=== PATIENT | male | born 1955 | race African-American/Black ===

== ENCOUNTER 2017-09-07 14:23 | Inpatient (IN) | payer MEDICAID ==
[~2017-09-07] VITALS: Ht 177.8 cm; Wt 86.2 kg
[2017-09-07 14:43] VITALS: BP 109/64
[2017-09-07 15:46] LABS: ANION GAP 10 mmol/L (5-15); BLOOD UREA NITROGEN 29 mg/dL (7-18); CALCIUM 8.1 MG/DL (8.5-10.1); CARBON DIOXIDE 19 MMOL/L (21-32); CHLORIDE 102 MMOL/L (98-107); CREATININE 2.3 MG/DL (0.55-1.30); POTASSIUM 4.6 MMOL/L (3.5-5.1); SODIUM 131 MMOL/L (136-145)
[2017-09-07 15:47] LABS: BASOPHILS % (AUTO) 0.6 % (0.0-2.0); HEMATOCRIT 38.9 % (42.0-52.0); HEMOGLOBIN 13.4 G/DL (14.2-18.0); LYMPHOCYTES % (AUTO) 27.7 % (20.0-45.0); MEAN CORPUSCULAR VOLUME 90 FL (80-99); MONOCYTES % (AUTO) 10.2 % (1.0-10.0); NEUTROPHILS % (AUTO) 60.5 % (45.0-75.0); PLATELET COUNT 217 K/UL (150-450); RED BLOOD COUNT 4.31 M/UL (4.70-6.10); RED CELL DISTRIBUTION WIDTH 11.3 % (11.6-14.8); WHITE BLOOD COUNT 9.4 K/UL (4.8-10.8)
[2017-09-07 15:59] LABS: ALANINE AMINOTRANSFERASE 27 U/L (12-78); ALBUMIN 2.8 G/DL (3.4-5.0); ALBUMIN/GLOBULIN RATIO 0.7 (1.0-2.7); ALKALINE PHOSPHATASE 67 U/L (46-116); ASPARTATE AMINO TRANSFERASE 46 U/L (15-37); BILIRUBIN,TOTAL 0.6 MG/DL (0.2-1.0); CKMB 6.4 NG/ML (0.0-3.6); CREATINE KINASE 791 U/L (26-308)
--- NOTE | 2017-09-07 16:21 | Emergency Room Report ---
History of Present Illness General Chief Complaint: Abnormal Labs Source: Patient Present Illness HPI 61-year-old male presents ED for evaluation. Patient brought in by EMS from clinic. Patient was hypotensive at the clinic. Was given IV hydration. Blood pressure improved upon triage. Patient states he had a normal routine checkup today with his doctor but states that when he was at the office he felt dizzy. States he felt okay this morning. States that for last few days he's been having diarrhea. Denies any vomiting. Denies chest pain or shortness of breath. Denies any abdominal pain. Denies nausea or vomiting. No other aggravating relieving factors. Denies any other associated symptoms Allergies: Coded Allergies: No Known Allergies (Unverified , 09/07/17) Patient History Past Medical History: DM, HTN Past Surgical History: none Pertinent Family History: none Social History: Denies: smoking, alcohol use, drug use Immunizations: UTD Reviewed Nursing Documentation: PMH: Agreed; PSxH: Agreed Nursing Documentation-PMH Past Medical History: No History, Except For Hx Hypertension: Yes Hx Diabetes: Yes Review of Systems All Other Systems: negative except mentioned in HPI Physical Exam Vital Signs Date Time Temp Pulse Resp B/P (MAP) Pulse Ox O2 Delivery O2 Flow Rate FiO2 09/07/17 14:17 97.6 81 20 109/64 100 Room Air 97.5 Sp02 EP Interpretation: reviewed, normal General Appearance: no apparent distress, alert, GCS 15, non-toxic Head: normocephalic, atraumatic Eyes: bilateral eye normal inspection, bilateral eye PERRL ENT: hearing grossly normal, normal pharynx, no angioedema, normal voice Neck: full range of motion, supple/symm/no masses Respiratory: chest non-tender, lungs clear, normal breath sounds, speaking full sentences Cardiovascular #1: regular rate, rhythm, no edema Cardiovascular #2: 2+ carotid (R), 2+ carotid (L), 2+ radial (R), 2+ radial (L) , 2+ dorsalis pedis (R), 2+ dorsalis pedis (L) Gastrointestinal: normal bowel sounds, non tender, soft, non-distended, no guarding, no rebound Rectal: deferred Genitourinary: normal inspection, no CVA tenderness Musculoskeletal: back normal, gait/station normal, normal range of motion, non- tender Neurologic: alert, oriented x3, responsive, motor strength/tone normal, sensory intact, speech normal Psychiatric: judgement/insight normal, memory normal, mood/affect normal, no suicidal/homicidal ideation Reflexes: 3+ bicep (R), 3+ bicep (L), 3+ tricep (R), 3+ tricep (L), 3+ knee (R) , 3+ knee (L) Skin: normal color, no rash, warm/dry, well hydrated Lymphatic: no adenopathy Medical Decision Making Diagnostic Impression: Primary Impression: Diarrhea Qualified Codes: R19.7 - Diarrhea, unspecified Additional Impressions: Dehydration ARF (acute renal failure) Qualified Codes: N17.9 - Acute kidney failure, unspecified ER Course Hospital Course 61-year-old male presents ED complaining of dizziness, blood pressure low. Diarrhea 2 days differential - acs/mi, dehydration, anemia Clinical course Patient placed on stretcher. After initial history, physical exam reveals elderly male in no acute distress. I ordered labs, IV fluids, EKG Labs - no leukocytosis noted, Hb/Hct stable. BUN/Cr elevated, trop negative EKG - NSR, no acute ischemic changes interpreted by me Case discussed with Dr. Rodriguez and he agreed to accept the patient to his service for further care and support I feel this is a highly complex case requiring extensive working including EKG/ Rhythm strip, Xray/CT/US, Blood/urine lab work, repeat exams while in ED, and administration of strong opiates/narcotics for pain control, admission to hospital or close patient follow up. Diagnosis - diarrhea, dehydation, ARF Patient admitted to hospital in serious condition Labs Test 09/07/17 15:01 White Blood Count 9.4 K/UL (4.8-10.8) Red Blood Count 4.31 M/UL (4.70-6.10) Hemoglobin 13.4 G/DL (14.2-18.0) Hematocrit 38.9 % (42.0-52.0) Mean Corpuscular Volume 90 FL (80-99) Mean Corpuscular Hemoglobin 31.0 PG (27.0-31.0) Mean Corpuscular Hemoglobin Concent 34.4 G/DL (32.0-36.0) Red Cell Distribution Width 11.3 % (11.6-14.8) Platelet Count 217 K/UL (150-450) Mean Platelet Volume 9.0 FL (6.5-10.1) Neutrophils (%) (Auto) 60.5 % (45.0-75.0) Lymphocytes (%) (Auto) 27.7 % (20.0-45.0) Monocytes (%) (Auto) 10.2 % (1.0-10.0) Eosinophils (%) (Auto) 1.0 % (0.0-3.0) Basophils (%) (Auto) 0.6 % (0.0-2.0) Sodium Level 131 MMOL/L (136-145) Potassium Level 4.6 MMOL/L (3.5-5.1) Chloride Level 102 MMOL/L (98-107) Carbon Dioxide Level 19 MMOL/L (21-32) Anion Gap 10 mmol/L (5-15) Blood Urea Nitrogen 29 mg/dL (7-18) Creatinine 2.3 MG/DL (0.55-1.30) Estimat Glomerular Filtration Rate 28.9 mL/min (>60) Glucose Level 198 MG/DL (74-106) Calcium Level 8.1 MG/DL (8.5-10.1) Total Bilirubin 0.6 MG/DL (0.2-1.0) Aspartate Amino Transf (AST/SGOT) 46 U/L (15-37) Alanine Aminotransferase (ALT/SGPT) 27 U/L (12-78) Alkaline Phosphatase 67 U/L (46-116) Total Creatine Kinase 791 U/L (26-308) Creatine Kinase MB 6.4 NG/ML (0.0-3.6) Creatine Kinase MB Relative Index 0.8 Troponin I 0.011 ng/mL (0.000-0.056) Pro-B-Type Natriuretic Peptide 183 pg/mL (0-125) Total Protein 6.9 G/DL (6.4-8.2) Albumin 2.8 G/DL (3.4-5.0) Globulin 4.1 g/dL Albumin/Globulin Ratio 0.7 (1.0-2.7) EKG Diagnostic Results Rate: normal Rhythm: NSR ST Segments: other - twave abnormality latera leads ASA given to the pt in ED: No Rhythm Strip Diag. Results EP Interpretation: yes Rhythm: NSR, no ectopy, other - PVCS Last Vital Signs Date Time Temp Pulse Resp B/P (MAP) Pulse Ox O2 Delivery O2 Flow Rate FiO2 09/07/17 14:43 97.5 72 20 109/64 100 Room Air 97.5 Status: improved Disposition: ADMITTED INPATIENT Condition: Serious Den Ríos MD Sep 07, 2017 16:21
[2017-09-07 16:26] VITALS: BP 99/56
[2017-09-07] MEDS ORDERED: SINEMET 25-1001 EAC1 ORAL (17:12)
[2017-09-07] MEDS ORDERED: BENZTROPINE2 MG/2 ML IJ (17:12)
[2017-09-07] MEDS ORDERED: AMLODIPINE-BEN1 EAC2 ORAL (17:12)
[2017-09-07] MEDS ORDERED: LITHIUM CARBON300 MG ORAL (17:12)
[2017-09-07] MEDS ORDERED: LISINOPRIL20 MG ORAL (17:13)
[2017-09-07] MEDS ORDERED: TAMIFLU6 MG/1 ML ORAL (17:13)
[2017-09-07] MEDS ORDERED: METOPROLOL-HCT1 EAC1 ORAL (17:13)
[2017-09-07 17:40] VITALS: BP 110/59
[2017-09-07 19:05] VITALS: BP 124/57
[2017-09-07 20:30] VITALS: BP 113/66
--- NOTE | 2017-09-07 21:51 | Diagnostic Imaging Report ---
EXAM: US Retroperitoneal Limited, Renal CLINICAL HISTORY: RENAL-A TECHNIQUE: Real-time ultrasound of the retroperitoneum (limited) with image documentation. COMPARISON: No relevant prior studies available. FINDINGS: Right kidney: Right kidney measures up to 12.5 cm. No stones. No hydronephrosis. Left kidney: Left kidney measures up to 12.8 cm. No stones. No hydronephrosis. Free fluid: None. Other findings: Gallstones. No gallbladder wall thickening or pericholecystic fluid. Negative sonographic Skinner's sign. Common bile duct is within normal limits. IMPRESSION: 1. Kidneys are unremarkable. 2. Gallstones. No sonographic evidence of acute cholecystitis.
[2017-09-07] MEDS: Docusate 100mg cap ORAL SCH (23:42)
[2017-09-07] MEDS: Heparin 5000 units/ml inj SUBQ SCH (23:43)
[2017-09-08] MEDS ORDERED: D5NS 1,000 ML IV SCH (03:30)
[2017-09-08 04:00] VITALS: BP 118/59
[2017-09-08] MEDS: Heparin 5000 units/ml inj SUBQ SCH ×3 (05:54→21:03)
[2017-09-08] MEDS ORDERED: NovoLOG Insulin Flexpen SUBQ SCH (06:30)
[2017-09-08] MEDS ORDERED: METOPROLOL TART25 MG ORAL (06:33)
[2017-09-08 08:00] VITALS: BP_SYST 107; BP_SYST 115; BP_DIAS 50; BP_DIAS 81
[2017-09-08] MEDS: Docusate 100mg cap ORAL SCH ×2 (08:30→20:53)
[2017-09-08 08:48] LABS: BASOPHILS % (AUTO) 0.7 % (0.0-2.0); EOSINOPHILS % (AUTO) 3.8 % (0.0-3.0); HEMATOCRIT 36.3 % (42.0-52.0); HEMOGLOBIN 12.6 G/DL (14.2-18.0); LYMPHOCYTES % (AUTO) 34.3 % (20.0-45.0); MEAN CORPUSCULAR VOLUME 90 FL (80-99); MONOCYTES % (AUTO) 8.4 % (1.0-10.0); NEUTROPHILS % (AUTO) 52.8 % (45.0-75.0); PLATELET COUNT 229 K/UL (150-450); RED BLOOD COUNT 4.06 M/UL (4.70-6.10); RED CELL DISTRIBUTION WIDTH 11.3 % (11.6-14.8); WHITE BLOOD COUNT 9.2 K/UL (4.8-10.8)
[2017-09-08] MEDS ORDERED: Levodopa/Carbidopa 25/100 tab ORAL SCH (09:00)
[2017-09-08] MEDS ORDERED: Metoprolol 25mg tab ORAL SCH (09:00)
[2017-09-08] MEDS ORDERED: Lisinopril 20mg tab ORAL SCH (09:00)
[2017-09-08 09:13] LABS: ANION GAP 8 mmol/L (5-15); BLOOD UREA NITROGEN 22 mg/dL (7-18); CALCIUM 9.4 MG/DL (8.5-10.1); CARBON DIOXIDE 24 MMOL/L (21-32); CHLORIDE 104 MMOL/L (98-107); CREATINE KINASE 744 U/L (26-308); CREATININE 1.3 MG/DL (0.55-1.30); POTASSIUM 3.7 MMOL/L (3.5-5.1); SODIUM 136 MMOL/L (136-145)
--- NOTE | 2017-09-08 11:22 | Discharge Instructions ---
Discharge Instructions Discharge Instructions Diet: 2 GM sodium (low sodium), diabetic calorie control Resume Normal Activity?: Yes Activity: resume normal activities Pneumonia Vaccine: vaccine not indicated Influenza Vaccine (Jan to Jun): vaccine not indicated Follow Up Orders 1. F/U with PCP on [place]. Continue Dm regimen and Hold HCTZ due to hyponatremia For Congestive Heart Failure Reminder Report to your physician any weight gain of 5 pounds or more in one week. Luís Rodriguez M.D. Sep 08, 2017 11:22
[2017-09-08 12:00] VITALS: BP 106/60
[2017-09-08 16:00] VITALS: BP 112/68
--- NOTE | 2017-09-08 19:16 | History and Physical Report ---
DATE OF ADMISSION: 09/07/2017 DATE OF ADMISSION: September 07, 2017. REASON FOR ADMISSION: 1. Hyponatremia. 2. Acute kidney injury. 3. Dehydration. HISTORY OF PRESENT ILLNESS: The patient is a pleasant 61-year-old gentleman who gets his continuity medical care through [facility]. He presented to the clinic not feeling well, a little dizzy, and was given hydration. After feeling dizzy and continuing not to feel well, he was sent to the emergency room for further evaluation and care. He stated that he was even having diarrhea for the last few days, but no current nausea or vomiting then it was noted that the patient had sodium of 131, elevated creatinine of 2.3, BUN of 29. ALLERGIES: No known drug allergies. PAST MEDICAL HISTORY: 1. Bipolar. 2. Diabetes mellitus. 3. Hypertension. PAST SURGICAL HISTORY: None. SOCIAL HISTORY: No tobacco, alcohol, or illicit drug use. REVIEW OF SYSTEMS: NEUROLOGIC: The patient denies headache, change in vision, syncope, or presyncopal episodes. CARDIOVASCULAR: No current chest pain, palpitations, or angina. PULMONARY: No difficulty breathing, productive cough, or sputum. GASTROINTESTINAL/GENITOURINARY: The patient was having some diarrhea. No nausea or vomiting. ENDOCRINOLOGY: No night sweats, fevers, or chills. LABORATORY DATA: Labs dated September 07, 2017, sodium 131, potassium 4.6, BUN 29, creatinine 2.3, calcium 8.1. Total creatine kinase 791. White cell count 9.4, hemoglobin 13.4, and platelet count 217,000, so lithium level is still pending. PHYSICAL EXAMINATION: VITAL SIGNS: Blood pressure 118/59, 97% oxygen on room air, pulse 72, and temperature 97.7. GENERAL: The patient is awake, alert, feeling better. HEENT: Extraocular muscles intact. Oropharyngeal mucosa clear, dry. NECK: No lymphadenopathy noted. CARDIOVASCULAR: S1 and S2. No rubs or gallops. PULMONARY: Clear to auscultation bilaterally. No rales, rhonchi, or wheezes. ABDOMEN: Nondistended and nontender. EXTREMITIES: No edema. ASSESSMENT AND PLAN: 1. Acute kidney injury versus chronic kidney disease. At this time, unclear whether or not the patient has a normal creatinine. He has been on lithium for bipolar and could have underlying chronic CKD from tube interstitial disease. Renal ultrasound has been ordered and the patient started on hydration. Morning laboratories to be evaluated. 2. Hyponatremia. Could be secondary to dehydration while being on HCTZ. At this time, hydration has been started and morning laboratories are pending. 3. DVT prophylaxis with heparin subcutaneous. 4. Dehydration. At this time, continue normal saline isotonic solution. 5. Hypotension, could be from volume depletion. Blood pressure has stabilized. Continue IV fluids. Blood pressure medications have been held. 6. Bipolar disease. At this time, lithium is being held while level is pending. If level is normal, we will re-initiate at original dose. 7. After morning laboratories are evaluated, if everything has normalized, we will discharge the patient. Luís Rodriguez MD DR: ANNIE JOB#: [id number] CC: JUICE
[2017-09-08 20:00] VITALS: BP 118/62
[2017-09-08] MEDS ORDERED: Tamsulosin 0.4mg cap ORAL SCH (21:00)
[2017-09-09] VITALS: BP 123/73
[2017-09-09 04:00] VITALS: BP 122/67
[2017-09-09] MEDS: Heparin 5000 units/ml inj SUBQ SCH (05:27)
[2017-09-09 08:01] VITALS: BP 142/70
[2017-09-09] MEDS: Docusate 100mg cap ORAL SCH (08:24)
[2017-09-09 08:32] LABS: HEMATOCRIT 34.4 % (42.0-52.0); HEMOGLOBIN 12.3 G/DL (14.2-18.0); LYMPHOCYTES % (AUTO) 46.9 % (20.0-45.0); MEAN CORPUSCULAR VOLUME 89 FL (80-99); MONOCYTES % (AUTO) 8.9 % (1.0-10.0); NEUTROPHILS % (AUTO) 39.1 % (45.0-75.0); PLATELET COUNT 208 K/UL (150-450); RED BLOOD COUNT 3.87 M/UL (4.70-6.10); RED CELL DISTRIBUTION WIDTH 11.1 % (11.6-14.8); WHITE BLOOD COUNT 7.9 K/UL (4.8-10.8)
[2017-09-09 08:38] LABS: ANION GAP 8 mmol/L (5-15); BLOOD UREA NITROGEN 11 mg/dL (7-18); CARBON DIOXIDE 24 MMOL/L (21-32); CHLORIDE 106 MMOL/L (98-107); SODIUM 138 MMOL/L (136-145)
--- NOTE | 2017-09-09 08:57 | Nephrology Progress Note ---
Assessment/Plan Assessment/Plan 1. Hyponatremia- due to volume depletion- resolved 2. LUCIA- resolved 3. Hypotension- due to volume depletion- resolved 4. DM -on metformin 5. Loraine level pending. DC today if < 1.9 DC home today and f/u PCP tomorrow pending lithium level Subjective Date patient seen: Sep 09, 2017 Time patient seen: 08:51 ROS Limited/Unobtainable: No Allergies: Coded Allergies: No Known Allergies (Unverified , 09/07/17) All Systems: reviewed and negative except above Subjective Patient feels well, back to baseline Objective Last 24 Hour Vital Signs Date Time Temp Pulse Resp B/P (MAP) Pulse Ox O2 Delivery O2 Flow Rate FiO2 09/09/17 08:01 97.2 77 18 142/70 98 Room Air 97.2 09/09/17 04:00 97.3 65 18 122/67 99 Room Air 97.3 09/09/17 00:00 98.3 70 18 123/73 98 Room Air 98.3 09/08/17 20:00 97.3 73 18 118/62 98 97.3 09/08/17 16:00 97.6 72 17 112/68 100 97.6 09/08/17 12:00 97.9 69 18 106/60 97.9 Intake and Output 09/08/17 09/09/17 19:00 07:00 Intake Total 1375 ml 1500 ml Balance 1375 ml 1500 ml Intake Oral 600 ml 300 ml IV Total 775 ml 1200 ml # Voids 3 1 # Bowel Movements 1 Laboratory Tests 09/08/17 17:10: Loraine Level [Pending] 09/09/17 06:50: White Blood Count 7.9, Red Blood Count 3.87L, Hemoglobin 12.3L, Hematocrit 34.4L , Mean Corpuscular Volume 89, Mean Corpuscular Hemoglobin 31.8H, Mean Corpuscular Hemoglobin Concent 35.7, Red Cell Distribution Width 11.1L, Platelet Count 208, Mean Platelet Volume 8.5, Neutrophils (%) (Auto) 39.1L, Lymphocytes (%) (Auto) 46.9H, Monocytes (%) (Auto) 8.9, Eosinophils (%) (Auto) 4.0H, Basophils (%) (Auto) 1.0, Sodium Level 138, Potassium Level 4.0, Chloride Level 106, Carbon Dioxide Level 24, Anion Gap 8, Blood Urea Nitrogen 11, Creatinine 1.0, Estimat Glomerular Filtration Rate > 60, Glucose Level 218H, Calcium Level 9.0 Height (Feet): 5 Height (Inches): 10.00 Weight (Pounds): 190 General Appearance: alert EENT: normal ENT inspection Neck: normal alignment, supple Cardiovascular: regular rhythm Respiratory/Chest: chest wall non-tender, lungs clear Abdomen: non tender, soft Edema: no edema noted Arm (L), no edema noted Arm (R), no edema noted Leg (L), no edema noted Leg (R), no edema noted Pedal (L), no edema noted Pedal (R), no edema noted Generalized Luís Rodriguez M.D. Sep 09, 2017 08:57
[2017-09-09] MEDS ORDERED: D5NS 1000ml IV ONE (11:12)
[2017-09-09] MEDS ORDERED: NS 275ml ONE (11:12)
[2017-09-09] MEDS ORDERED: NS 500ML ONE (11:12)
[2017-09-09] MEDS ORDERED: D5 1/2NS 1000ml IV ONE (11:12)
[2017-09-09] MEDS ORDERED: Tubing IV Secondary IV ONE (11:12)
--- NOTE | 2017-09-09 17:02 | Cardiology Report ---
APPROVED REPORT EKG Measurement Heart [id number] [id number] Sinus rhythm with occasional premature ventricular complexes T wave abnormality, consider inferior ischemia Prolonged QT Abnormal ECG
--- NOTE | 2017-09-09 18:30 | Discharge Summary ---
DATE OF ADMISSION: 09/07/2017 DATE OF DISCHARGE: 09/09/2017 REASON FOR HOSPITALIZATION: 1. Dehydration. 2. Hyponatremia. 3. Acute kidney injury. HOSPITAL STAY COURSE: The patient is a 61-year-old gentleman with underlying bipolar disease who was sent from his primary care physician for further evaluation and care due to hypotension and feeling weak, and fatigued. Upon presentation to the emergency room, it was noted that he had creatinine elevated to 2.3 and BUN of 29, slightly hypotensive and dehydrated. The patient had been having diarrhea 2 to 3 days prior to presentation, but has since resolved. The patient was aggressively hydrated and felt better. Next day, the patient is pending discharge clearance as his renal function had vastly improved. Renal ultrasound was negative. However, his lithium level was 1.9. He was then held for another 24 hours for repeat lithium level. The lithium level most likely had increased in light of acute kidney injury from the volume depletion and hypotension. Today, lithium level had improved to 1.4, which was collected the day before. The patient was stable. Blood pressure was stable and the patient is to be discharged home back on his medications. CONSULTANTS: None. DISCHARGE DISPOSITION: Stable. FOLLOWUP POST DISCHARGE: The patient is to follow up with his primary care physician tomorrow to re-evaluate blood pressure and adjust medications as deemed appropriate. HOME DISCHARGE MEDICATIONS: At this time, there will be no changes in his home discharge medications other than his antihypertensive regimen. At the time of discharge, he is only to continue his metoprolol at his set dose. Other antihypertensive medications can be re-added if necessary once he sees his primary care physician tomorrow. Also to f/u with PCP for Dm management and continue his home metformin and ADA diet DISCHARGE DIAGNOSIS: 1. Hyponatremia. 2. Acute kidney injury. 3. Dehydration. Luís Rodriguez MD DR: JOS JOB#: [id number] CC: JUICE
== END 2017-09-09 11:10 | disposition home or self-care (01) | DRG 422 ==
LOC: EDBD 14:23 → EMR 15:30 → EDBEDREQ 19:13 → 3E 19:15 → EDBEDREQ 19:47
DX: E87.1 Hypo-osmolality and hyponatremia (principal); E86.0 Dehydration; N28.9 Disorder of kidney and ureter, unspecified; E11.9 Type 2 diabetes mellitus without complications; Z79.84 Long term (current) use of oral hypoglycemic drugs
CPT/HCPCS: 36415; 76770; 80048; 80053; 80178; 82550; 82553; 82962; 83880; 84484; 85025; 93005; 99285; J1815

== ENCOUNTER 2017-10-24 19:42 | Emergency (ER) | payer MEDICAID ==
[~2017-10-24] VITALS: Ht 190.5 cm; Wt 127.0 kg
[~2017-10-24 19:42] MED LIST: AMLODIPINE-BEN1 EAC2 ORAL; ASPIRIN81 MG ORAL; ATORVASTATIN CA10 MG ORAL; BENZTROPINE2 MG/2 ML IJ; GABAPENTIN100 MG ORAL; GLIPIZIDE5 MG ORAL; HYDROXYZINE HCL10 M1 PO; LISINOPRIL20 MG ORAL; LITHIUM CARBON150 MG ORAL; LITHIUM CARBON300 MG ORAL; METFORMIN HCL500 M1 ORAL; METOPROLOL TART25 MG ORAL; METOPROLOL-HCT1 EAC1 ORAL; MIRTAZAPINE15 MG ORAL; NOVOLOG100 UNIT/3 SUBQ; PRIMIDONE50 MG PO; SINEMET 25-1001 EAC1 ORAL; TAMIFLU6 MG/1 ML ORAL; TRAZODONE HCL150 MG ORAL
[2017-10-24] MEDS ORDERED: NS IVLG ONE (19:45)
[2017-10-24 21:08] LABS: BASOPHILS % (AUTO) 1.1 % (0.0-2.0); EOSINOPHILS % (AUTO) 1.4 % (0.0-3.0); HEMATOCRIT 36.3 % (42.0-52.0); HEMOGLOBIN 12.7 G/DL (14.2-18.0); LYMPHOCYTES % (AUTO) 25.9 % (20.0-45.0); MEAN CORPUSCULAR VOLUME 90 FL (80-99); MONOCYTES % (AUTO) 9.1 % (1.0-10.0); NEUTROPHILS % (AUTO) 62.5 % (45.0-75.0); PLATELET COUNT 263 K/UL (150-450); RED BLOOD COUNT 4.05 M/UL (4.70-6.10); RED CELL DISTRIBUTION WIDTH 11.9 % (11.6-14.8); WHITE BLOOD COUNT 9.7 K/UL (4.8-10.8)
[2017-10-24 21:13] VITALS: BP 154/71
[2017-10-24 21:27] LABS: ANION GAP 6 mmol/L (5-15); BLOOD UREA NITROGEN 43 mg/dL (7-18); CALCIUM 9.8 MG/DL (8.5-10.1); CARBON DIOXIDE 25 MMOL/L (21-32); CHLORIDE 106 MMOL/L (98-107); CREATININE 2.3 MG/DL (0.55-1.30); POTASSIUM 4.6 MMOL/L (3.5-5.1); SODIUM 137 MMOL/L (136-145)
[2017-10-24 21:41] LABS: ALANINE AMINOTRANSFERASE 26 U/L (12-78); ALBUMIN 4.1 G/DL (3.4-5.0); ALKALINE PHOSPHATASE 86 U/L (46-116); ASPARTATE AMINO TRANSFERASE 28 U/L (15-37); CKMB 6.5 NG/ML (0.0-3.6); CREATINE KINASE 700 U/L (26-308); PHOSPHORUS 3.5 MG/DL (2.5-4.9)
[2017-10-24 22:00] VITALS: BP 160/101
--- NOTE | 2017-10-24 22:05 | Emergency Room Report ---
History of Present Illness General Chief Complaint: Generalized Weakness Source: Patient, EMS Present Illness HPI This patient has a history of Parkinson's disease. He is out in by EMS. The patient states that he is having difficulty managing his Parkinson's disease. His tremor is getting worse. The EMS were called by the patient's brother because he was unable to do his activities of daily living. The patient does live alone but does have a caregiver that comes for about 3 hours per day. The family is very concerned that this patient needs [id number] care. The patient himself has no other specific complaints. Allergies: Coded Allergies: No Known Allergies (Unverified , 09/07/17) Patient History Past Medical History: see triage record, DM, other - Parkinsons Social History: Denies: smoking, alcohol use, drug use Reviewed Nursing Documentation: PMH: Agreed; PSxH: Agreed Nursing Documentation-PMH Hx Cardiac Problems: Yes Hx Hypertension: Yes Hx Diabetes: Yes Hx Cancer: No Hx Gastrointestinal Problems: No Review of Systems All Other Systems: negative except mentioned in HPI Physical Exam Vital Signs Date Time Temp Pulse Resp B/P (MAP) Pulse Ox O2 Delivery O2 Flow Rate FiO2 10/24/17 19:31 97.3 110 20 143/76 97 Room Air 97.3 Sp02 EP Interpretation: reviewed, normal General Appearance: no apparent distress, alert, GCS 15, non-toxic, other - Poor hygiene, food on clothing. Head: normocephalic, atraumatic Eyes: bilateral eye normal inspection, bilateral eye PERRL ENT: hearing grossly normal, normal pharynx, no angioedema, normal voice Neck: full range of motion, supple/symm/no masses Respiratory: chest non-tender, lungs clear, normal breath sounds, speaking full sentences Cardiovascular #1: regular rate, rhythm, no edema Gastrointestinal: normal bowel sounds, non tender, soft, non-distended, no guarding, no rebound Rectal: deferred Musculoskeletal: back normal, gait/station normal, normal range of motion, non- tender Neurologic: alert, responsive, sensory intact, speech normal, other - Coarse resting tremor Psychiatric: judgement/insight normal, memory normal, mood/affect normal, no suicidal/homicidal ideation Skin: normal color, no rash, warm/dry, well hydrated Medical Decision Making Diagnostic Impression: Primary Impression: Parkinson's disease (tremor, stiffness, slow motion, unstable posture) Additional Impression: Renal failure ER Course This patient has had some decompensation of his Parkinson's disease. He also has acute renal failure. The patient's family is very concerned that he is declining and is unsafe in his home. This patient will need to be admitted, his kidney function will need to be monitored and he'll need to be evaluated by a lead case manager/high school social studies teacher to determine his need for level of care. He is admitted for further evaluation and treatment. Laboratory Tests Test 10/24/17 20:44 White Blood Count 9.7 K/UL (4.8-10.8) Red Blood Count 4.05 M/UL (4.70-6.10) L Hemoglobin 12.7 G/DL (14.2-18.0) L Hematocrit 36.3 % (42.0-52.0) L Mean Corpuscular Volume 90 FL (80-99) Mean Corpuscular Hemoglobin 31.4 PG (27.0-31.0) H Mean Corpuscular Hemoglobin Concent 34.9 G/DL (32.0-36.0) Red Cell Distribution Width 11.9 % (11.6-14.8) Platelet Count 263 K/UL (150-450) Mean Platelet Volume 6.2 FL (6.5-10.1) L Neutrophils (%) (Auto) 62.5 % (45.0-75.0) Lymphocytes (%) (Auto) 25.9 % (20.0-45.0) Monocytes (%) (Auto) 9.1 % (1.0-10.0) Eosinophils (%) (Auto) 1.4 % (0.0-3.0) Basophils (%) (Auto) 1.1 % (0.0-2.0) Sodium Level 137 MMOL/L (136-145) Potassium Level 4.6 MMOL/L (3.5-5.1) Chloride Level 106 MMOL/L (98-107) Carbon Dioxide Level 25 MMOL/L (21-32) Anion Gap 6 mmol/L (5-15) Blood Urea Nitrogen 43 mg/dL (7-18) H Creatinine 2.3 MG/DL (0.55-1.30) H Estimate Glomerular Filtration Rate 35.0 mL/min (>60) Glucose Level 99 MG/DL (74-106) Lactic Acid Level 1.60 mmol/L (0.4-2.0) Calcium Level 9.8 MG/DL (8.5-10.1) Phosphorus Level 3.5 MG/DL (2.5-4.9) Magnesium Level 2.2 MG/DL (1.8-2.4) Total Bilirubin 1.0 MG/DL (0.2-1.0) Aspartate Amino Transferase (AST) 28 U/L (15-37) Alanine Aminotransferase (ALT) 26 U/L (12-78) Alkaline Phosphatase 86 U/L (46-116) Total Creatine Kinase 700 U/L (26-308) H Creatine Kinase MB 6.5 NG/ML (0.0-3.6) H Creatine Kinase MB Relative Index 0.9 Troponin I 0.000 ng/mL (0.000-0.056) Total Protein 8.2 G/DL (6.4-8.2) Albumin 4.1 G/DL (3.4-5.0) Globulin 4.1 g/dL Albumin/Globulin Ratio 1.0 (1.0-2.7) EKG Diagnostic Results Rate: normal Rhythm: NSR ST Segments: no acute changes Rhythm Strip Diag. Results EP Interpretation: yes Rate: 60's Rhythm: NSR, no PVC's, no ectopy Last Vital Signs Date Time Temp Pulse Resp B/P (MAP) Pulse Ox O2 Delivery O2 Flow Rate FiO2 10/24/17 21:13 98.0 63 18 154/71 100 Room Air 98.0 Disposition: ADMITTED INPATIENT Condition: Stable Referrals: [facility],REFERRING (PCP) Flory Duong DO Oct 24, 2017 22:05
[2017-10-24 23:29] LABS: APPEARANCE,URINE CLEAR; BILIRUBIN, URINE NEGATIVE (NEGATIVE); COLOR,URINE PALE YELLOW; GLUCOSE, URINE (UA) NEGATIVE (NEGATIVE); KETONES,URINE 1+ (NEGATIVE); LEUKOCYTE ESTERASE ,URINE NEGATIVE (NEGATIVE); NITRITE,URINE NEGATIVE (NEGATIVE); PH,URINE 5 (4.5-8.0); PROTEIN,URINE 1+ (NEGATIVE); UROBILINOGEN,URINE NORMAL MG/DL (0.0-1.0)
[2017-10-25 01:50] VITALS: BP 131/71
[2017-10-25 02:08] VITALS: BP 131/71
--- NOTE | 2017-10-25 09:00 | Diagnostic Imaging Report ---
Indication: Dyspnea Technique: One view of the chest Comparison: none Findings: Lungs and pleural spaces are clear. Heart size is normal. There are degenerative changes of the thoracic spine Impression: No acute process This agrees with the preliminary interpretation provided overnight by [facility] teleradiology service.
--- NOTE | 2017-10-26 16:59 | Cardiology Report ---
APPROVED REPORT EKG Measurement Heart [id number] Sinus rhythm with premature atrial complexes in a pattern of bigeminy T wave abnormality, consider inferior ischemia Abnormal ECG
== END 2017-10-25 02:08 | disposition other institution (70) ==
LOC: EDBD 19:42 → EMR 20:00
DX: G20 Parkinson's disease (principal); N17.9 Acute kidney failure, unspecified; I10 Essential (primary) hypertension; E11.9 Type 2 diabetes mellitus without complications
CPT/HCPCS: 36415; 71045; 80053; 81003; 82550; 82553; 83605; 83735; 84100; 84484; 85025; 87040; 87181; 93005; 99285

== ENCOUNTER 2018-01-19 03:41 | Emergency (ER) | payer MEDICAID ==
[~2018-01-19] VITALS: Ht 188 cm; Wt 104.3 kg
[2018-01-19 03:50] VITALS: BP 170/84
[2018-01-19] MEDS ORDERED: Sodium Chloride 500ML 550 ML IV SCH (04:00)
--- NOTE | 2018-01-19 04:00 | Emergency Room Report ---
History of Present Illness General Chief Complaint: Flu Like Symptoms Source: Patient (Danny Buckley M.D.) Present Illness HPI Patient brought in by EMS. He's complaining about an upper respiratory infection. The patient has a history of bipolar schizoaffective disorder and is supposed be taking lithium and Zyprexa however it's not been taking his medication for a long time. The patient denies any suicidal or homicidal ideation however he says things that are probably not true. He is known to the paramedics.Living on the streets. He denies doing any drugs or alcohol. Is a diabetic and is supposed be taking metformin but hasn't been taking that either. He has polyuria and polydipsia and feels thirsty. He states he hasn't eaten for many years. He states he is hungry. He denies any pain in his body. The patient has obvious edema and when asked about this he says that he's never been worked up for this. He states it's new since he was walking around. Admitted October for diarrhea and ARF. Creat at that time was 2.3. Denies SI or HI. Some grandiose statements: "I have 4 million dollars in my pocket." Seen as outpatient for Parkinsonian symptoms. (Danny Buckley M.D.) Allergies: Coded Allergies: No Known Allergies (Unverified , 09/07/17) Patient History Past Medical History: see triage record Social History: Denies: smoking, alcohol use, drug use Social History Narrative on streets, allegedly stays near [facility] Reviewed Nursing Documentation: PMH: Agreed; PSxH: Agreed (Danny Buckley M.D.) Nursing Documentation-PM Past Medical History: No History, Except For Hx Cardiac Problems: Yes Hx Hypertension: Yes Hx Diabetes: Yes Hx Cancer: No Hx Gastrointestinal Problems: No (Danny Buckley M.D.) Physical Exam Vital Signs Date Time Temp Pulse Resp B/P (MAP) Pulse Ox O2 Delivery O2 Flow Rate FiO2 01/19/18 03:39 98.4 94 18 170/84 100 Room Air 98.4 Sp02 EP Interpretation: reviewed, normal General Appearance: well appearing, no apparent distress, GCS 15 Head: normocephalic, atraumatic Eyes: bilateral eye normal inspection, bilateral eye PERRL, bilateral eye EOMI ENT: dry mucus membranes, other - Tardive movements of tongue Neck: supple Respiratory: lungs clear, normal breath sounds Cardiovascular #1: regular rate, rhythm Cardiovascular #2: 2+ radial (R) Gastrointestinal: normal inspection, normal bowel sounds, non tender, no mass, non-distended Musculoskeletal: back normal, gait/station normal, normal range of motion Neurologic: alert, oriented x3, motor strength/tone normal, DTRs symmetric, sensory intact, cerebellar normal, normal gait Psychiatric: no suicidal/homicidal ideation, other - Grandiose thoughts and hypersexuality Skin: normal inspection, warm/dry (Danny Buckley M.D.) Medical Decision Making Diagnostic Impression: Primary Impression: Rhabdomyolysis Qualified Codes: M62.82 - Rhabdomyolysis Additional Impressions: Renal failure Qualified Codes: N17.9 - Acute kidney failure, unspecified Schizoaffective disorder, bipolar type ER Course Diabetic patient with alleged flulike symptoms however has more complicated psychiatric and medical complaints. Differential includes hyperglycemia, other electrolyte abnormalities, acute myocardial infarction, pneumonia, upper respiratory infection, congestive heart failure amongst others. The patient will be evaluated with EKG, chest x-ray and labs. Patient appears dehydrated even though his total body sodium excess (edema) and will be given gentle IV hydration. He states he's noncompliant with his lithium and therefore lithium level was not indicated at this time. He's not suicidal however he seems to have some flight of idea and grandiosity. This may be treated. EKG without injury. Chest x-ray no heart failure or infiltrates. Labs significant for rhabdomyolysis and renal failure. BNP is slightly elevated ( but CXR clear). Patient was receiving IV hydration this was switched over to D5 water with 3 amps of bicarbonate. Because of the rhabdomyolysis and renal failure the patient admitted to the hospital. The patient still was out of control but not suicidal. Zyprexa was given. Signed out to Dr. Chester. Laboratory Tests Test 01/19/18 05:00 01/19/18 05:35 White Blood Count 9.6 K/UL (4.8-10.8) Red Blood Count 3.92 M/UL (4.70-6.10) L Hemoglobin 11.6 G/DL (14.2-18.0) L Hematocrit 34.8 % (42.0-52.0) L Mean Corpuscular Volume 89 FL (80-99) Mean Corpuscular Hemoglobin 29.7 PG (27.0-31.0) Mean Corpuscular Hemoglobin Concent 33.5 G/DL (32.0-36.0) Red Cell Distribution Width 11.4 % (11.6-14.8) L Platelet Count 341 K/UL (150-450) Mean Platelet Volume 6.0 FL (6.5-10.1) L Neutrophils (%) (Auto) 51.3 % (45.0-75.0) Lymphocytes (%) (Auto) 30.8 % (20.0-45.0) Monocytes (%) (Auto) 14.6 % (1.0-10.0) H Eosinophils (%) (Auto) 0.5 % (0.0-3.0) Basophils (%) (Auto) 2.8 % (0.0-2.0) H Sodium Level 138 MMOL/L (136-145) Potassium Level 3.9 MMOL/L (3.5-5.1) Chloride Level 99 MMOL/L (98-107) Carbon Dioxide Level 27 MMOL/L (21-32) Anion Gap 13 mmol/L (5-15) Blood Urea Nitrogen 48 mg/dL (7-18) H Creatinine 1.8 MG/DL (0.55-1.30) H Estimate Glomerular Filtration Rate 46.3 mL/min (>60) Glucose Level 164 MG/DL (74-106) H Calcium Level 9.4 MG/DL (8.5-10.1) Total Bilirubin 0.7 MG/DL (0.2-1.0) Aspartate Amino Transferase (AST) 76 U/L (15-37) H Alanine Aminotransferase (ALT) 57 U/L (12-78) Alkaline Phosphatase 85 U/L (46-116) Total Creatine Kinase 2589 U/L (26-308) H Troponin I 0.043 ng/mL (0.000-0.056) Total Protein 8.5 G/DL (6.4-8.2) H Albumin 3.2 G/DL (3.4-5.0) L Globulin 5.3 g/dL Albumin/Globulin Ratio 0.6 (1.0-2.7) L Salicylates Level 1.5 ug/mL (2.8-20) L Acetaminophen Level < 2 MCG/ML (10-30) L Serum Alcohol < 3 mg/dL Urine Color Pale yellow Urine Appearance Clear Urine pH 5 (4.5-8.0) Urine Specific [place] 1.015 (1.005-1.035) Urine Protein 2+ (NEGATIVE) H Urine Glucose (UA) 1+ (NEGATIVE) H Urine Ketones 1+ (NEGATIVE) H Urine Blood 2+ (NEGATIVE) H Urine Nitrite Negative (NEGATIVE) Urine Bilirubin Negative (NEGATIVE) Urine Urobilinogen 1 MG/DL (0.0-1.0) H Urine Leukocyte Esterase Negative (NEGATIVE) Urine RBC 2-4 /HPF (0 - 0) H Urine WBC 0 /HPF (0 - 0) Urine Squamous Epithelial Cells None /LPF (NONE/OCC) Urine Bacteria Few /HPF (NONE) Urine Opiates Screen Negative (NEGATIVE) Urine Barbiturates Screen Negative (NEGATIVE) Phencyclidine (PCP) Screen Negative (NEGATIVE) Urine Amphetamines Screen Negative (NEGATIVE) Urine Benzodiazepines Screen Negative (NEGATIVE) Urine Cocaine Screen Negative (NEGATIVE) Urine Marijuana (THC) Screen Negative (NEGATIVE) (Danny Buckley M.D.) ER Course Patient endorsed to me by Dr. Buckley for rhabdomyolysis. Patient was discussed with at [facility] who agreed to accept patient in transfer. The patient be transferred for further management and is currently stable condition (Gino Chester MD) EKG Diagnostic Results Rate: tachycardiac - rate 102 Rhythm: NSR ST Segments: no acute changes (Danny Buckley M.D.) Rhythm Strip Diag. Results Rhythm: NSR, no PVC's (Danny Buckley M.D.) Chest X-Ray Diagnostic Results Chest X-Ray Diagnostic Results : Chest X-Ray Ordered: Yes # of Views/Limited/Complete: 1 View Indication: Other EP Interpretation: Yes Interpretation: no consolidation, no effusion, no pneumothorax Impression: No acute disease Electronically Signed by: Electronically signed by Danny Buckley MD (Danny Buckley M.D.) Last Vital Signs Date Time Temp Pulse Resp B/P (MAP) Pulse Ox O2 Delivery O2 Flow Rate FiO2 01/19/18 10:07 98.4 86 16 135/58 97 Room Air 98.4 Status: improved (Danny Buckley M.D.) Status: unchanged (Gino Chester MD) Disposition: XFER SHT-TRM HOSP Condition: Serious Danny Buckley M.D. Jan 19, 2018 04:00 Gino Chester MD Jan 19, 2018 07:32
[2018-01-19 05:09] LABS: BASOPHILS % (AUTO) 2.8 % (0.0-2.0); EOSINOPHILS % (AUTO) 0.5 % (0.0-3.0); HEMATOCRIT 34.8 % (42.0-52.0); HEMOGLOBIN 11.6 G/DL (14.2-18.0); LYMPHOCYTES % (AUTO) 30.8 % (20.0-45.0); MEAN CORPUSCULAR VOLUME 89 FL (80-99); MONOCYTES % (AUTO) 14.6 % (1.0-10.0); NEUTROPHILS % (AUTO) 51.3 % (45.0-75.0); PLATELET COUNT 341 K/UL (150-450); RED BLOOD COUNT 3.92 M/UL (4.70-6.10); RED CELL DISTRIBUTION WIDTH 11.4 % (11.6-14.8); WHITE BLOOD COUNT 9.6 K/UL (4.8-10.8)
[2018-01-19 05:18] LABS: ANION GAP 13 mmol/L (5-15); BLOOD UREA NITROGEN 48 mg/dL (7-18); CALCIUM 9.4 MG/DL (8.5-10.1); CARBON DIOXIDE 27 MMOL/L (21-32); CHLORIDE 99 MMOL/L (98-107); CREATININE 1.8 MG/DL (0.55-1.30); POTASSIUM 3.9 MMOL/L (3.5-5.1); SODIUM 138 MMOL/L (136-145)
--- NOTE | 2018-01-19 05:28 | Diagnostic Imaging Report ---
EXAM: XR Chest, 1 View CLINICAL HISTORY: ALOC TECHNIQUE: Frontal view of the chest. COMPARISON: 10/24/17 FINDINGS: Lungs: No dense consolidation. Pleural space: No effusion. No pneumothorax. Heart: Unremarkable. No cardiomegaly. Mediastinum: Unremarkable. Bones/joints: Degenerative changes in the thoracic spine. Vasculature: Stable mildly tortuous thoracic aorta. Tubes, lines and devices: Overlying chest leads obscure portion of the chest. IMPRESSION: Stable chest. No acute disease
[2018-01-19 05:31] LABS: ALANINE AMINOTRANSFERASE 57 U/L (12-78); ALBUMIN 3.2 G/DL (3.4-5.0); ALBUMIN/GLOBULIN RATIO 0.6 (1.0-2.7); ALKALINE PHOSPHATASE 85 U/L (46-116); ASPARTATE AMINO TRANSFERASE 76 U/L (15-37); BILIRUBIN,TOTAL 0.7 MG/DL (0.2-1.0); CREATINE KINASE 2589 U/L (26-308)
[2018-01-19 05:37] VITALS: BP 154/79
[2018-01-19 05:38] LABS: APPEARANCE,URINE CLEAR; BILIRUBIN, URINE NEGATIVE (NEGATIVE); COLOR,URINE PALE YELLOW; GLUCOSE, URINE (UA) 1+ (NEGATIVE); KETONES,URINE 1+ (NEGATIVE); LEUKOCYTE ESTERASE ,URINE NEGATIVE (NEGATIVE); NITRITE,URINE NEGATIVE (NEGATIVE); PH,URINE 5 (4.5-8.0); PROTEIN,URINE 2+ (NEGATIVE); UROBILINOGEN,URINE 1 MG/DL (0.0-1.0)
[2018-01-19] MEDS ORDERED: Sodium Bicarbonate 150 ML in D5W 1000ml 1,000 ML IV SCH (06:30)
[2018-01-19 07:08] VITALS: BP 150/68
[2018-01-19 09:01] VITALS: BP 135/58
[2018-01-19 10:07] VITALS: BP 135/58
--- NOTE | 2018-01-20 12:01 | Cardiology Report ---
APPROVED REPORT EKG Measurement Heart [id number] Sinus tachycardia T wave abnormality, consider inferior ischemia Abnormal ECG
== END 2018-01-19 10:15 | disposition short-term general hospital (02) ==
LOC: EDBD 03:41 → EMR 04:08
DX: M62.82 Rhabdomyolysis (principal); N17.9 Acute kidney failure, unspecified; I10 Essential (primary) hypertension; E11.9 Type 2 diabetes mellitus without complications; F20.9 Schizophrenia, unspecified; F31.9 Bipolar disorder, unspecified; Z59.0 Homelessness
CPT/HCPCS: 36415; 71045; 80053; 80307; 80329; 81003; 82550; 82570; 83935; 84300; 84484; 85025; 93005; 96361; 96365; 96366; 99285; J3490; J7040; J7070